=== PATIENT | female | born 2005 | race Caucasian/White ===

== ENCOUNTER 2023-11-17 20:55 | Emergency (ER) | payer BC, MEDICAID ==
[2023-11-17 21:23] VITALS: O2SAT 98
--- NOTE | 2023-11-17 22:38 | XRAY Report ---
PROCEDURE: Ankle 3+V LT INDICATIONS: fall and rolled ankle TECHNIQUE: 3 views of the ankle were acquired. COMPARISON: None. FINDINGS: Bones: No fractures or dislocations. Ankle mortise is normally aligned. No suspicious bony lesions . The talar dome demonstrates an unremarkable appearance. Soft tissues: No tibiotalar joint effusion. Achilles tendon appears normal. IMPRESSION: No acute bony abnormality is seen by plain film. Reviewed by: Sonny Joseph MD on 11/17/2023 9:37 PM [facility] Approved by: Sonny Joseph MD on 11/17/2023 9:37 PM [facility] Station ID: [id number]
--- NOTE | 2023-11-17 22:54 | ED Physician Documentation ---
PD HPI LOWER EXT INJURY - Stated complaint Stated Complaint: L ANKLE INJ - Chief complaint Chief Complaint: Ext Problem - History obtained from History obtained from: Patient - Additional information Additional information: Patient presents by private vehicle for left foot/ankle pain. Patient was walking when her foot inverted and she heard a pop. There is swelling to the outside aspect of her ankle.Denies other accident or injury Review of Systems Musculoskeletal: reports: Extremity pain, Joint pain, Joint swelling PD PAST MEDICAL HISTORY - Past Medical History Past Medical History: Yes Other Past Medical History: leg fracture - Past Surgical History Past Surgical History: No - Allergies Allergies/Adverse Reactions: Allergies Allergy/AdvReac Type Severity Reaction Status Date / Time Iodinated Contrast Media Allergy Severe Anaphylaxis Verified 11/17/23 21:20 diphenhydramine Allergy Anxiety Verified 11/17/23 21:20 [From Benadryl] Fish Containing Products Allergy Anaphylaxis Verified 11/17/23 21:20 melatonin Allergy Hives Verified 11/17/23 21:20 shellfish derived Allergy Anaphylaxis Verified 11/17/23 21:20 latex AdvReac Hives Verified 11/17/23 21:20 - Social History Does the pt smoke?: No Smoking Status: Never smoker Does the pt drink ETOH?: No - Immunizations Immunizations are current?: Yes - POLST Patient has POLST: No PD ED PE NORMAL - Vitals Vital signs reviewed: Yes - General General: Alert and oriented X 3, No acute distress, Well developed/nourished - Derm Derm: Normal color, Warm and dry, Other (Superficial abrasion right knee) - Extremities Extremities: Other (Lateral malleoli are tenderness to palpation, moderate ankle swelling, palpable pulses) - Neuro Neuro: Alert and oriented X 3, 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 Lateral malleolar tenderness to palpation. Patient declined pain medications, stating her pain was well-controlled with ice application. X-rays negative for acute fracture. Patient placed in Aquiles wrap splint, RICE instructions counseled at bedside. Departure - Departure Disposition: 01 Home, Self Care Clinical Impression: Ankle sprain Condition: Stable Instructions: ED Sprain Ankle Comments: Your x-ray was negative for acute fracture. You can apply ice as needed to swelling, wear the Aquiles wrap bandage for comfort. Take Tylenol and ibuprofen for discomfort. Forms: PCP List Discharge Date/Time: 11/17/23 23:05
[2023-11-17 23:06] VITALS: BP 128/79
== END 2023-11-17 23:05 | disposition home or self-care (01) ==
LOC: ED 20:55
DX: S93.402A Sprain of unspecified ligament of left ankle, initial encounter (principal); X50.1XXA Overexertion from prolonged static or awkward postures, initial encounter
CPT/HCPCS: 99283